=== PATIENT | male | born 1980 | race African-American/Black ===

== ENCOUNTER 2020-04-20 00:58 | Emergency (ER) | payer SELFPAY ==
[~2020-04-20] VITALS: Ht 182.9 cm; Wt 91.0 kg
[2020-04-20 01:01] VITALS: BP 172/100
== END 2020-04-20 05:38 | disposition left against medical advice (07) ==
LOC: ER 00:58
DX: Z53.21 Procedure and treatment not carried out due to patient leaving prior to being seen by health care provider (principal)